=== PATIENT | male | born 1950 | race Caucasian/White ===

== ENCOUNTER 2022-06-26 12:30 | Outpatient (RCR) | payer MEDICARE, BC, SELFPAY | END 2022-07-31 12:29 | disposition home or self-care (01) | PROVIDERS: Visit Provider Physical Medicine & Rehabilitation | DX: G95.9 Disease of spinal cord, unspecified (principal); Z51.89 Encounter for other specified aftercare | CPT/HCPCS: 97110; 97112; 97140; 97162; 97165; 97535; X5282 ==

== ENCOUNTER 2023-12-09 12:59 | Outpatient (CLI) | payer MEDICARE, BC, SELFPAY | END 2023-12-09 13:00 | disposition home or self-care (01) | LOC: NFLDREF 12-10 06:24 | PROVIDERS: Visit Provider Nurse Practitioner Family | DX: N30.00 Acute cystitis without hematuria (principal) | CPT/HCPCS: 87086; 87186 ==